=== PATIENT | female | born 1970 | race Caucasian/White ===

== ENCOUNTER 2020-09-04 06:31 | Observation (INO) ==
--- NOTE | 2020-08-28 16:19 | EKG ---
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 Measurements Intervals [place] Rate: 94 P: 66 IN: 184 QRS: 36 QRSD: 88 T: 23 QT: 372 QTc: 466 Interpretive Statements SINUS RHYTHM PROBABLE LEFT ATRIAL ABNORMALITY NOISY BASELINE NO PRIOR TRACING FOR COMPARISON Electronically Signed On 08-28-2020 16:19:20 PDT by Izaiah Mason M.D. /[email or web address]/[id number]
[2020-08-28 19:22] LABS: Basophils # (Auto) 0.04 K/mcL (0.00-0.20); Basophils % (Auto) 0.7 % (0.0-2.0); Eosinophils # (Auto) 0.07 K/mcL (0.00-0.70); Eosinophils % (Auto) 1.2 % (0.0-7.0); Hemoglobin 12.8 g/dL (12.0-15.0); Lymphocytes % (Auto) 20.2 % (15.0-49.0); Mean Cell Volume 83.5 fL (80.0-100.0); Mean Corpuscular HGB Conc 33.7 g/dL (31.0-36.0); Monocytes # (Auto) 0.52 K/mcL (0.10-0.90); Monocytes % (Auto) 8.8 % (1.0-12.0); Neutrophils % (Auto) 69.1 % (38.0-78.0); Platelet Count 311 K/mcL (140-440); RBC 4.55 M/mcL (4.00-5.20); Red Cell Distribution Width 14.6 % (11.5-14.5); WBC 5.9 K/mcL (4.5-11.0)
[2020-08-28 20:02] LABS: Estimated Average Glucose(eAG) 111 mg/dL; Hemoglobin A1C 5.5 % Hgb (4.0-6.0)
[2020-08-28 20:19] LABS: INR 0.9 (0.9-1.1); Partial Thromboplastin Time 28.9 sec (20.0-37.0); Prothrombin Time 12.8 sec (11.9-14.5)
[2020-08-28 20:23] LABS: ALT/SGPT 38 U/L (<40); AST/SGOT 41 U/L (<32); Albumin 4.3 gm/dL (3.2-5.2); Albumin/Globulin Ratio 1.6 (1.0-2.3); Alkaline Phosphatase 90 U/L (39-117); Bilirubin,Total 0.5 mg/dL (0.1-1.0); Blood Urea Nitrogen 11 mg/dL (6-20); Calcium 9.9 mg/dL (8.6-10.4); Carbon Dioxide 27 mmol/L (22-30); Chloride 89 mmol/L (96-108); Globulin 2.7 gm/dL (2.2-3.7); Glomerular Filtration Rate 107; Glucose 83 mg/dL (70-105)
[2020-08-28 21:54] LABS: HCG,Serum Negative
--- NOTE | 2020-08-29 10:39 | General Surgery Progress Note ---
Surgical - Auxillary Note - Subjective Patient Information: Note initiated : 08/29/20 at 10:37 am Service Date, if different from initiated Date: [] Patient: EarleneJune a 50 y/o F admitted on for Attempted Laparoscopic Cholecystectomy, Open . Chief Complaint: [preop labs preop lab indicate electrolyte derangement will notify PCP via this note to initiate electrolyte correction before surgery will redraw labs on day of surgery, possible cancel if not corrected. DIETER]
--- NOTE | 2020-08-29 14:17 | XRay Report ---
INDICATION: Preop TECHNIQUE: PA and lateral upright chest x-ray COMPARISON: None FINDINGS: Lungs: Lungs are negative. No focal pulmonary parenchymal infiltrate or mass Heart, vascular: No significant cardiomegaly. Pulmonary vascularity is normal. No pulmonary edema or pulmonary congestion Mediastinum, yumiko: No mediastinal widening. No hilar mass Pleura:No pleural fluid. No pleural-based mass or calcification Thoracic spine, ribs: No thoracic compression fracture. Ribs are negative. No fracture. No lytic lesion IMPRESSION: Negative PA and lateral chest x-ray Interpreted and Authenticated by: Lewis Berrios 08/29/20
[~2020-09-04 06:31] MED LIST: PIPERACILLIN SODIUM/TAZOBACTAM 3.375 GM in DEXTROSE 5% IN WATER 50 ML IV SCH; VANCOMYCIN 1,500 MG in 0.9 % SODIUM CHLORIDE 500 ML IV SCH
[2020-09-04 07:09] LABS: POC Blood Urea Nitrogen 10 mg/dL (6-20); POC CO2 26 mmol/L (22-30); POC Calcium, Ionized 1.14 mmEq/L (1.16-1.32); POC Chloride 104 mEq/L (96-108); POC Creatinine 0.7 mg/dL (0.6-1.2); POC Glucose, Random 133 mg/dL (70-105); POC Hematocrit 31 % (36-48); POC Potassium 4.3 mEql/L (3.3-5.1); POC Sodium 138 mEq/L (133-145)
[2020-09-04] MEDS ORDERED: IPRATROPIUM/ALBUTEROL 3 ML AMPUL.NEB NEB ONE ×2 (07:30→07:31)
[2020-09-04] MEDS ORDERED: DEXAMETHASONE 10 MG/ML VIAL ONE (08:15)
[2020-09-04] MEDS ORDERED: SUCCINYLCHOLINE 20 MG/ML ML IV ONE (08:15)
[2020-09-04] MEDS ORDERED: fentaNYL 100 MCG/2 ML VIAL IV ONE (08:15)
[2020-09-04] MEDS ORDERED: LIDOCAINE HCL/PF 100 MG/5 ML SYRINGE IV ONE (08:15)
[2020-09-04] MEDS ORDERED: MIDAZOLAM 5 MG/5 ML VIAL ONE (08:15)
[2020-09-04] MEDS ORDERED: KETAMINE 100 MG/ML ML ONE (08:15)
[2020-09-04] MEDS ORDERED: ONDANSETRON 4 MG/2 ML VIAL ONE (08:15)
[2020-09-04] MEDS ORDERED: MAGNESIUM SULFATE 2 GM/50 ML BAG IV ONE (08:15)
[2020-09-04] MEDS ORDERED: PROPOFOL 200 MG/20 ML VIAL IV ONE (08:15)
[2020-09-04] MEDS ORDERED: ROCURONIUM 10 MG/ML ML IV ONE (08:15)
[2020-09-04] MEDS ORDERED: HYDROmorphone 1 MG/ML SYRINGE ONE (08:15)
[2020-09-04] MEDS ORDERED: ATROPINE SULFATE 0.4 MG/ML VIAL IV PRN (09:27)
[2020-09-04] MEDS ORDERED: NALOXONE HCL 0.4 MG/ML VIAL IV PRN (09:27)
[2020-09-04] MEDS ORDERED: ONDANSETRON 4 MG/2 ML VIAL IV PRN ×2 (09:27→10:34)
[2020-09-04] MEDS ORDERED: ePHEDrine 50 MG/ML AMPUL IV PRN (09:27)
[2020-09-04] MEDS ORDERED: METOPROLOL TARTRATE 5 MG/5 ML VIAL IV PRN (09:27)
[2020-09-04] MEDS ORDERED: MEPERIDINE 25 MG/ML VIAL IV PRN (09:27)
[2020-09-04] MEDS ORDERED: METHOCARBAMOL 1,000 MG/10 ML VIAL IV PRN (09:27)
[2020-09-04] MEDS ORDERED: diphenhydrAMINE 50 MG/ML VIAL IV PRN (09:27)
[2020-09-04] MEDS ORDERED: fentaNYL 100 MCG/2 ML VIAL IV PRN (09:27)
[2020-09-04] MEDS ORDERED: FLUMAZENIL 0.1 MG/ML ML IV PRN (09:27)
[2020-09-04] MEDS ORDERED: HYDROmorphone 0.5 MG/0.5 ML SYRINGE IV PRN (09:27)
[2020-09-04] MEDS ORDERED: PROMETHAZINE 25 MG/ML VIAL IV PRN (09:27)
[2020-09-04] MEDS ORDERED: IPRATROPIUM/ALBUTEROL 3 ML AMPUL.NEB NEB PRN (09:27)
[2020-09-04] MEDS ORDERED: ACETAMINOPHEN 1,000 MG/100 ML BAG IV ONE (09:27)
[2020-09-04] MEDS ORDERED: LACTATED RINGERS 1,000 ML IV SCH (09:30)
[2020-09-04] MEDS ORDERED: BACITRACIN 50,000 UNIT VIAL IR ONE (09:43)
[2020-09-04] MEDS ORDERED: traZODone HCL 50 MG TABLET PO PRN (10:34)
--- NOTE | 2020-09-04 10:34 | Brief Operative Note ---
Brief Operative Note Date of procedure: 09/04/20 Pre-op diagnosis: cholelithiasis with cholecystitis;incisional hernia Post-op diagnosis: other (cholelithiasis with cholecystitis;extensive intra- abdominal adhesions;incisional hernia) Procedure: laparoscopy with adhesiolysis;open cholecystectomy;incisional hernia repair Grafts/Implants: No Anesthesia: GETA Findings: extensive upper abdominal adhesions extending to liver margins and filling entire upper abdomen;dilated gallbladder with extensive adhesions ;3 midline fascial defects Complications: none Surgeon: Basilio Alan Estimated blood loss (cc): 25 Specimens Removed/Pathology: other (gallbladder) Condition: stable Disposition: PACU
[2020-09-04] MEDS: 0.9 % SODIUM CHLORIDE 1,000 ML IV SCH (11:17)
[2020-09-04] MEDS: 0.9 % SODIUM CHLORIDE 10 ML SYRINGE IV SCH ×2 (13:57→21:47)
[2020-09-04] MEDS: NICOTINE 21 MG PATCH TOPICAL SCH (15:46)
[2020-09-04] MEDS: HYDROmorphone 1 MG/ML SYRINGE IV PRN ×4 (15:50→23:51)
[2020-09-04] MEDS ORDERED: SENNOSIDES 1 TABLET PO SCH (21:00)
[2020-09-04] MEDS: DOCUSATE SODIUM 100 MG CAPSULE PO SCH (21:44)
[2020-09-04] MEDS: MUPIROCIN OINT 2% 22GM NARES SCH (21:46)
[2020-09-05] MEDS: 0.9 % SODIUM CHLORIDE 1,000 ML IV SCH (00:03)
[2020-09-05] MEDS: HYDROmorphone 1 MG/ML SYRINGE IV PRN ×5 (01:46→14:19)
[2020-09-05] MEDS: 0.9 % SODIUM CHLORIDE 10 ML SYRINGE IV SCH ×2 (04:18→14:20)
[2020-09-05 07:05] LABS: Basophils # (Auto) 0.01 K/mcL (0.00-0.20); Basophils % (Auto) 0.1 % (0.0-2.0); Eosinophils # (Auto) 0 K/mcL (0.00-0.70); Eosinophils % (Auto) 0 % (0.0-7.0); Hematocrit 34.1 % (36.0-48.0); Hemoglobin 10.3 g/dL (12.0-15.0); Lymphocytes # (Auto) 0.69 K/mcL (1.50-4.80); Lymphocytes % (Auto) 9.6 % (15.0-49.0); Mean Cell Volume 92.7 fL (80.0-100.0); Mean Corpuscular HGB Conc 30.2 g/dL (31.0-36.0); Mean Platelet Volume 9.9 fL (7.4-10.4); Monocytes # (Auto) 0.57 K/mcL (0.10-0.90); Monocytes % (Auto) 7.9 % (1.0-12.0); Neutrophils % (Auto) 82.4 % (38.0-78.0); Platelet Count 238 K/mcL (140-440); RBC 3.68 M/mcL (4.00-5.20); Red Cell Distribution Width 15.1 % (11.5-14.5); WBC 7.2 K/mcL (4.5-11.0)
[2020-09-05 07:33] LABS: ALT/SGPT 48 U/L (<40); AST/SGOT 81 U/L (<32); Albumin 3.7 gm/dL (3.2-5.2); Albumin/Globulin Ratio 1.5 (1.0-2.3); Alkaline Phosphatase 83 U/L (39-117); Bilirubin,Direct 0.3 mg/dL (<0.3); Bilirubin,Total 0.6 mg/dL (0.1-1.0); Blood Urea Nitrogen 7 mg/dL (6-20); Calcium 8.8 mg/dL (8.6-10.4); Carbon Dioxide 23 mmol/L (22-30); Chloride 103 mmol/L (96-108); Globulin 2.5 gm/dL (2.2-3.7); Glomerular Filtration Rate 107; Glucose 100 mg/dL (70-105); Lactate Dehydrogenase 273 U/L (135-225); Phosphorous 3.3 mg/dL (2.5-4.5); Triglycerides 107 mg/dL (<150); Uric Acid 4.4 mg/dL (2.5-8.0)
[2020-09-05] MEDS: DOCUSATE SODIUM 100 MG CAPSULE PO SCH (09:20)
[2020-09-05] MEDS: NICOTINE 21 MG PATCH TOPICAL SCH (09:20)
[2020-09-05] MEDS: MUPIROCIN OINT 2% 22GM NARES SCH (09:20)
--- NOTE | 2020-09-05 13:00 | Surgical Pathology Report ---
Histology Microscopic Diagnosis Specimen A- GALLBLADDER, CHOLECYSTECTOMY: --- CHRONIC CHOLECYSTITIS. (DMT) Procedural Impression Cholelithiasis and cholecystitis. Gross Description Received in formalin labeled gallbladder, is a 7.7 x 3.2 x 0.9 cm pink-ayala gallbladder specimen. The majority of the serosa is smooth and glistening with approximately 30% roughened and brown-ayala. No clips are found on the gallbladder specimen and the cystic duct is received opened. The mucosa is velvety pink-ayala with no masses or lesions identified. The wall is up to 0.3 cm thick. There are no gallstones found within the gallbladder specimen or specimen container. Machinist Outside portions are submitted in one cassette. (KGW:adj) Electronically Signed Dwain Doyle MD, FCAP Electronically Signed 09/05/2020 12:58
--- NOTE | 2020-09-05 13:01 | Operative Note ---
DATE OF OPERATION: 09/04/2020 PREOPERATIVE DIAGNOSES: 1. Cholelithiasis with cholecystitis. 2. Incisional hernia. POSTOPERATIVE DIAGNOSES: 1. Cholelithiasis with cholecystitis. 2. Extensive intra-abdominal adhesions. 3. Incisional hernia. PROCEDURE: Laparoscopy with adhesiolysis, open cholecystectomy, incisional hernia repair. FINDINGS: Extensive upper abdominal adhesions extended to the liver margin and filling the entire upper abdomen; dilated gallbladder with extensive adhesions; 3 midline fascial defects. DESCRIPTION OF PROCEDURE: Under general anesthesia, the patient's abdomen was prepped and draped in a sterile field. She had had a previous laparotomy that extended above the supraumbilical midline. Small incision was made in the left subcostal margin and an attempt was made to gain access with a Veress needle. It was unsuccessful. Next, I cut down over the midline incision, extended through the fascia into the peritoneal cavity. This was identified by omentum. The omentum was densely adherent to the peritoneum. Using finger dissection, I was able to separate the omentum enough to place a Nickolas port in place. An attempt was made to insufflate the peritoneal cavity, but this could not be done. I placed the camera to try to visualize the situation with the adhesions in this area. There were extensive adhesions. I was able to dissect enough that I could finally break through some of the adhesions and insufflate through the midline port. I then placed a 5 mm port under direct vision in the left upper quadrant. A 5 mm camera was placed here. With the camera in place, I was then able to use the hook cautery dissector and take down the adhesions in the right upper quadrant. These adhesions extended all the way to the liver and everything in the right upper quadrant was essentially plastered and it was felt not to be a safe situation for laparoscopic gallbladder removal. The ports were therefore removed and a standard right subcostal incision was made. The incision was extended through the rectus fascia into the peritoneum. There were extensive adhesions and these were taken down using electrocautery until I could find the liver. Once I could find the liver margin, I then used blunt dissection until the gallbladder could be found. The gallbladder was grasped with a Val clamp and using primarily blunt dissection and electrocautery, all the adhesions to the gallbladder were taken down until I had an adequate space for dissection with good visualization. The right upper quadrant was then packed off with 5 laparotomy sponges. A Tiny retractor was placed. The gallbladder was then from the infrahepatic bed using electrocautery. Cystic duct and cystic artery branches were identified. Cystic artery branch was clipped with 5 clips close to the gallbladder. It was divided. Cystic duct was encircled with a right-angle clamp. It was excised and the gallbladder was removed. Cystic duct was closed with a #5 joe and suture of 2-0 silk. Irrigation in the bed was carried out. There was no bile leak. There was no significant bleeding. The rectus muscle fascia was closed in two layers using 0 Prolene. Subcutaneous fat was closed with 2-0 Monocryl. Skin was closed with joe. After completion of the cholecystectomy, the remainder of the upper midline incision was opened. There were even more severe adhesions noted. These adhesions were taken down and 3 midline fascial defects were encountered. These defects were rather small and it was decided that I would do a primary closure using [id number]-vipfl sutures rather than place a mesh graft. The fascia was felt to be strong enough to hold a suture. The fascia and peritoneum were closed with multiple interrupted [id number] sutures of #1 Prolene. Subcutaneous tissue was irrigated and closed with 2-0 Monocryl. Skin was closed with joe. The patient tolerated the procedure well. Tegaderm dressing was placed. The patient was awakened and transferred to a bed, and taken to the postanesthetic care unit in stable, satisfactory condition. LCS:yariel Job ID: [id number] Doc ID: [id number] Basilio Alan M.D.
--- NOTE | 2020-09-05 13:23 | Discharge Summary ---
Discharge Provider Provider Patient information: Note initiated : 09/05/20 at 1:17 pm Service Date, if different from initiated Date: [] Patient: EarleneJune a 50 y/o F admitted on 09/04/20 for Attempted Laparoscopic Cholecystectomy, Open . Chief Complaint: [] Date of admission: 09/04/20 11:08 Discharge date: 09/05/20 Primary care physician: NICO Garcia Admitting clinician: Basilio Alan Attending physician on admission: Basilio Alan Attending physician on discharge: Almaz Alan Discharging clinician: Basilio Alan COURSE Hospital Course Hospital course: 50-year-old female who was admitted status post open cholecystectomy and incisional hernia repair. This was performed on yesterday. She has had an uneventful postoperative course and is stable for discharge home. Discharge diagnosis: Cholelithiasis with cholecystitis Secondary discharge diagnosis: Incisional hernia Chronic depression History of alcohol abuse Hypertension Chronic low back pain Reason for admission: Postoperative cholecystectomy and incisional hernia repair Procedures: Open cholecystectomy Incisional hernia repair Pertinent studies/significant findings: none Complications: None Time Spent with Patient Time attestation: Total time spent providing and/or coordinating discharge services: Physical Examination Vital Signs Vital signs: Temp Pulse Resp BP Pulse Ox 96.7 F L 86 16 142/91 98 09/05/20 12:00 09/05/20 12:00 09/05/20 12:00 09/05/20 12:00 09/05/20 12:00 General physical appearance General physical exam: well developed, well nourished, moderate distress, moderate pain and obese Eyes Eye exam: PERRL and normal ocular movement ENT ENT exam: normal mucosa and no hearing loss Head Head exam IM: Present atraumatic, normal inspection and normocephalic Neck Neck exam: no masses, no bruits, trachea midline, no lymphadenopathy and no venous distension Cardiovascular Cardiovascular exam IM: Present normal rate and rhythm, RRR, +S1 and +S2; Absent JVD Respiratory Respiratory exam: normal expansion, normal respiratory effort and clear to auscultation Abdomen Abdomen: Present soft, tender (Moderate incisional tenderness) and bowel sounds (Normal active bowel sounds) Integumentary Integumentary: Present no rash and no growths Neurologic Neurologic: Present normal coordination and normal sensation Musculoskeletal Musculoskeletal: Present normal gait and normal posture Psychiatric Psychiatric: Present oriented to time, oriented to person, oriented to place, speech is normal and memory intact Discharge Plan Patient/Caregiver Discharge Instructions Activity: increase activity as tolerated Diet: Regular Diet Instructions: Incisional Hernia (DC), Open Cholecystectomy (DC) Prescriptions: New oxycodone-acetaminophen [Endocet] 10-325 mg Tablet 1 tab PO Q4H PRN (Reason: Pain) Qty: 40 RF: 0 Continued lorazepam 0.5 mg tablet 0.5 mg PO BID PRN (Reason: anxiety) Qty: 30 RF: 0 fluticasone propionate [Allergy Relief (fluticasone)] 50 mcg/actuation spray,suspension 2 spray INTRANASAL QDAY Qty: 15.8 RF: 4 potassium chloride 20 mEq tablet extended release 20 meq PO BID Qty: 30 RF: 0 tizanidine 4 mg tablet 4 mg PO Q4HP PRN (Reason: Muscle Spasm) RF: 0 allopurinol 100 mg tablet 100 mg PO QDAY RF: 0 divalproex 500 mg tablet,delayed release (DR/EC) 500 - 750 mg PO BID RF: 0 omeprazole 40 mg capsule,delayed release(DR/EC) 40 mg PO QDAY RF: 0 montelukast 10 mg tablet 10 mg PO QDAY RF: 0 hydrochlorothiazide 25 mg tablet 25 mg PO BID RF: 0 albuterol sulfate [Ventolin HFA] 90 mcg/actuation HFA aerosol inhaler 2 puff inhalation Q4HP PRN (Reason: Shortness Of Breath) RF: 0 duloxetine 60 mg capsule,delayed release(DR/EC) 60 mg PO HS RF: 0 budesonide-formoterol [Symbicort] 160-4.5 mcg/actuation HFA aerosol inhaler 1 puff inhalation BID RF: 0 acetaminophen 500 mg Tablet 1,000 mg PO BID RF: 0 naproxen 250 mg Tablet 440 mg PO BID RF: 0 ibuprofen 200 mg Tablet 800 mg PO QDAY RF: 0 zolpidem [Ambien] 5 mg Tablet 10 mg PO QHS PRN (Reason: Insomnia) RF: 0 Discontinued hydrocodone-acetaminophen 10-325 mg tablet 1 tab PO Q4-6H PRN (Reason: pain) Qty: 120 RF: 0 Follow Up Plan Follow up with: Basilio Alan MD [Physician] - 09/19/20 9:30 am Patient Disposition: Home, Self-Care Rehab Potential: Good I certify that the patient requires SNF services: No Overall status at discharge: patient is progressing back to baseline Discharge Orders: Discharge Order (Routine); Ordered 09/05/20 Ordered By: Basilio Alan Pending Pending Pending: Resuscitation Status Full Code Diet Full Liquid Diet Start WedSep 04 1037 Docusate Sodium (Docusate Sodium 100 Mg Capsule) 100 mg PO BID [facility] Admin: 09/05/20 09:20 Dose: 100 mg Documented by: Admin: 09/04/20 21:44 Dose: 100 mg Documented by: LEILANI Hydromorphone HCl (Hydromorphone 1 Mg/Ml Syringe) 1 mg IV Q2HP PRN; Protocol PRN Reason: Per Pain Protocol Last Admin: 09/05/20 11:30 Dose: 1 mg Documented by: Admin: 09/05/20 07:54 Dose: 1 mg Documented by: Admin: 09/05/20 03:59 Dose: 1 mg Documented by: Admin: 09/05/20 01:46 Dose: 1 mg Documented by: Admin: 09/04/20 23:51 Dose: 1 mg Documented by: Admin: 09/04/20 21:44 Dose: 1 mg Documented by: Admin: 09/04/20 18:36 Dose: 1 mg Documented by: Admin: 09/04/20 15:50 Dose: 1 mg Documented by: BRENDAN Sodium Chloride (Sodium Chloride 0.9%) 1,000 mls @ 75 mls/hr IV .[id number] [facility] Last Admin: 09/05/20 00:03 Dose: 75 mls/hr Documented by: Infusion: 09/05/20 00:03 Dose: 75 mls/hr Documented by: Admin: 09/04/20 11:17 Dose: 75 mls/hr Documented by: BRENDAN Mupirocin (Mupirocin Oint 2% 22gm) 1 dose NARES BID [facility] Last Admin: 09/05/20 09:20 Dose: 1 dose Documented by: Admin: 09/04/20 21:46 Dose: 1 dose Documented by: LEILANI Nicotine (Nicotine 21 Mg Patch) 21 mg TOPICAL DAILY@1000 [facility] Admin: 09/05/20 09:20 Dose: 21 mg Documented by: Admin: 09/04/20 15:46 Dose: 21 mg Documented by: BRENDAN Senna (Sennosides 1 Tablet) 2 tab PO HS [facility] Last Admin: 09/04/20 21:44 Dose: 2 tab Documented by: LEILANI Sodium Chloride (0.9 % Sodium Chloride 10 Ml Syringe) 10 ml IV Q8 [facility] Last Admin: 09/05/20 04:18 Dose: Not Given Documented by: Admin: 09/04/20 21:47 Dose: Not Given Documented by: Admin: 09/04/20 13:57 Dose: Not Given Documented by: BRENDAN Shift Summary 09/05/20 04:24 Shift Summary by Colleen Vaca Admitted for hernia repair & cholesystectomy. Nicotine patch in place d/t being a current smoker. Up w/SBA to BR; voiding well. Taking pain meds every 2-4 hours. Dressings to abdomen w/scant drainage. Unsure of d/c date at this time. Initialized on 09/05/20 04:24 - END OF NOTE
== END 2020-09-05 15:00 | disposition home or self-care (01) ==
LOC: MEDSUR 06:31 → SUR 06:31 → MEDSUR 11:07
PROVIDERS: ADMIT Family Medicine Adult Medicine; ATTEND Family Medicine Adult Medicine